=== PATIENT | male | born 1955 | race Caucasian/White ===

== ENCOUNTER 2016-08-14 19:57 | Emergency (ER) | payer BC, OTHER ==
[2016-08-14 20:32] LABS: BASO # 0.1 10_X3_uL (0.0-0.1); BASO % 0.9 % (0.2-1.2); EOS # 0.4 10_X3_uL (0.0-0.5); EOS % 5.1 % (0.8-7.0); GRAN # 3.7 10_X3_uL (1.8-5.4); GRAN % 48.3 % (34.0-67.9); HEMATOCRIT 44.1 % (40-51); HEMOGLOBIN 14.2 g/dL (13.7-17.5); LYMPH # 2.5 10_X3_uL (1.3-3.6); LYMPH % 32.3 % (21.8-53.1); MEAN CORPUSCULAR HEMOGLOBIN 30.8 pg (27.0-33.0); MEAN CORPUSCULAR HGB CONC 32.2 g/dL (32.0-36.0); MEAN CORPUSCULAR VOLUME 95.7 fL (79-92); MONO % 13.4 % (5.3-12.2); PLATELET COUNT 276 x10_3/uL (163-337); RED BLOOD COUNT 4.61 x10_6/uL (4.6-6.1); RED CELL DISTRIBUTION WIDTH 15.5 % (11.6-14.4); WHITE BLOOD COUNT 7.7 x10_3/uL (4.2-9.1)
== END 2016-08-14 21:33 | disposition home or self-care (01) ==
LOC: ER 19:57
PROVIDERS: General Practice
DX: M51.36 Other intervertebral disc degeneration, lumbar region (principal); G89.29 Other chronic pain; M54.9 Dorsalgia, unspecified; Z88.0 Allergy status to penicillin
CPT/HCPCS: 36415; 72128; 72131; 85025; 99283-25